=== PATIENT | female | born 1950 | race Caucasian/White ===

== ENCOUNTER → 2016-10-16 | Outpatient (CLI) | payer MEDICARE, OTHER ==
--- NOTE | 2016-10-16 16:52 | CR ---
EXAMINATION: Pelvis and right hip HISTORY: Pain COMPARISON: 08/17/2014 TECHNIQUE: AP pelvis and 2 views of the right hip FINDINGS: There is no acute osseous abnormality, dislocation, or fracture. Bone mineralization and j oint spaces appear grossly normal. Mild osteophyte formation is noted along the right femoral head. Minimal sclerotic changes are noted at the SI joints. Mild degenerative changes noted within the low er lumbar spine. IMPRESSION: Mild degenerative changes within the right hip without acute findings.
== END ==
LOC: MW.CHORTHO 07:36
PROVIDERS: ATTEND Physician Assistant
DX: M25.551 Pain in right hip (principal)
CPT/HCPCS: 20610; 73502; G0463; J1040

== ENCOUNTER → 2016-10-18 | Outpatient (CLI) | payer MEDICARE, OTHER | LOC: MW.CHFP 08:00 | DX: G57.02 Lesion of sciatic nerve, left lower limb (principal) | CPT/HCPCS: G0463 ==

== ENCOUNTER → 2016-11-07 | Outpatient (CLI) | payer MEDICARE, OTHER | LOC: MW.CHRC 08:00 | PROVIDERS: ATTEND Family Medicine | DX: J01.90 Acute sinusitis, unspecified (principal); B96.89 Other specified bacterial agents as the cause of diseases classified elsewhere; J45.909 Unspecified asthma, uncomplicated | CPT/HCPCS: G0463 ==

== ENCOUNTER → 2016-11-29 | Outpatient (CLI) | payer MEDICARE, OTHER ==
--- NOTE | 2016-11-30 10:55 | CR ---
EXAM DATE: 11/29/16 PATIENT'S AGE: 65 Patient: NICOLE MCLAIN Facility: [place], [place] Site . Site : [id number] Study: XRay Chest [id number]/13/2017 4:35:21 PM Ordering Physician: Krystal Torres Final Report: INDICATION: COUGH TECHNIQUE: Chest 2 views. COMPARISON: 06/16/15 FINDINGS: Cardiovascular and mediastinum: Heart size and vasculature are normal in caliber and appearance. Mediastinum is within normal limits. Lungs and pleural spaces: Lungs are clear. No sign of infiltrate or mass. No sign of pleural effusion. No pneumothorax. Bones and soft tissues: No significant findings. IMPRESSION: Unremarkable chest. Dictated by: Sam Rose MD @ 11/29/2016 17:24:58 (Electronic Signature) Report Signed by Proxy and Original Signed Document filed in the Medical Record. [facility]
== END ==
LOC: MW.CHRC 15:59
PROVIDERS: ATTEND Family Medicine
DX: R05 Cough (principal); J01.90 Acute sinusitis, unspecified
CPT/HCPCS: 36415; 71020; 71020-26; 85025; 87070; 87205; G0463

== ENCOUNTER → 2016-12-06 | Outpatient (CLI) | payer MEDICARE, OTHER | LOC: MW.CHORTHO 08:00 | PROVIDERS: ATTEND Orthopaedic Surgery | DX: M17.11 Unilateral primary osteoarthritis, right knee (principal); M25.561 Pain in right knee | CPT/HCPCS: 20610; G0463; J1040 ==

== ENCOUNTER 2017-05-01 11:22 | Day surgery (SDC) | payer MEDICARE, OTHER ==
[~2017-05-01 11:22] MED LIST: Lactated Ringers 1,000 ML IV SCH; Sodium Chloride 0.9% 10 ML Syringe FLUSH PRN; Sodium Chloride 0.9% 2.5 ML Syringe FLUSH PRN
[2017-05-01] MEDS ORDERED: Propofol 200 MG/20 ML SDV ONE (12:19)
--- NOTE | 2017-05-01 12:19 | PCM.PREANE ---
Preanesthetic Assessment - Anesthesia/Transfusion/Family Hx Anesthesia History: Prior Anesthesia Without Reaction Other Type of Anesthesia Reaction Comment: states "need a small tube" Family History of Anesthesia Reaction: No Transfusion History: No Prior Transfusion(s) - Review of Systems General: No Symptoms Pulmonary: No Symptoms Cardiovascular: No Symptoms Neurological: No Symptoms Other: Reports: None - Physical Assessment NPO Status Date: 04/30/17 O2 Sat by Pulse Oximetry: 92 Respiratory Rate: 16 Vital Signs: Last Vital Signs Temp 36.4 C 05/01/17 12:00 Pulse 73 05/01/17 12:00 Resp 16 05/01/17 12:00 BP 143/77 H 05/01/17 12:00 Pulse Ox 92 L 05/01/17 12:00 Height: 1.52 m Weight: 85.729 kg ASA Class: 2 Mental Status: Alert & Oriented x3 Airway Class: Mallampati = 2 Dentition: Reports: Bridge ROM/Head Extension: Full Lungs: Clear to Auscultation, Normal Respiratory Effort Cardiovascular: Regular Rate, Regular Rhythm - Allergies Allergies/Adverse Reactions: Allergies Allergy/AdvReac Type Severity Reaction Status Date / Time Sulfa (Sulfonamide Allergy Hives Verified 07/08/15 17:56 Antibiotics) Spinach Allergy Cannot Uncoded 04/29/17 16:12 Remember - Blood Product(s) Available: None - Acknowledgements Anesthesia Type Planned: MAC Pt an Appropriate Candidate for the Planned Anesthesia: Yes Alternatives and Risks of Anesthesia Discussed w Pt/Guardian: Yes Pt/Guardian Understands and Agrees with Anesthesia Plan: Yes PreAnesthesia Questionnaire HEENT History: Reports: Allergic Rhinitis, Other (See Below) Other HEENT History: wears glasses Cardiovascular History: Reports: High Cholesterol, Hypertension Respiratory History: Reports: SOB, Other (See Below) Other Respiratory History: SOB due to allergies Gastrointestinal History: Reports: Diverticulosis, GERD [employer]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: Musculoskeletal History: Reports: Osteoarthritis Neurological History: Reports: None Psychiatric History: Reports: Anxiety, Depression Endocrine/Metabolic History: Reports: Hypothyroidism, Obesity/BMI 30+ Other Endocrine/Metabolic History: Hypothyroidism Hematologic History: Reports: None - Past Surgical History Head Surgeries/Procedures: Reports: None HEENT Surgical History: Reports: Tonsillectomy GI Surgical History: Reports: Appendectomy, Cholecystectomy, Colonoscopy Other GI Surgeries/Procedures: Cautery of hemorrhoids Female Surgical History: Reports: Hysterectomy Musculoskeletal Surgical History: Reports: Arthroscopic Knee, Carpal Tunnel, Knee Replacement Other Musculoskeletal Surgeries/Procedures:: Right knee scope, Bilateral Decompression of Carpal Tunnel - SUBSTANCE USE Smoking Status *Q: Never Smoker Days Per Week of Alcohol Use: 0 Number of Drinks Per Day: 0 Total Drinks Per Week: 0 Recreational Drug Use History: No - HOME MEDS Home Medications: Home Meds Levothyroxine Sodium [Levoxyl] 50 mcg PO ACBRK 08/02/14 [History] amLODIPine [Norvasc] 2.5 mg PO BEDTIME 08/02/14 [History] Calcium Citrate/Vitamin D3 [Citracal + D Maximum Caplet] 1 tab CHEW DAILY [History] Cholecalciferol (Vitamin D3) [Vitamin D3] 2,000 units PO DAILY 07/08/15 [History ] Fluticasone Furoate [Veramyst] 1 spray JOANNE DAILY PRN 07/08/15 [History] Rosuvastatin [Crestor] 20 mg PO BEDTIME 07/08/15 [History] Hydrochlorothiazide 25 mg PO DAILY 07/11/15 [History] Nystatin/Triamcin [Nystatin-Triamcinolone Ointm] 1 applic TOP ASDIRECTED PRN [History] Potassium Chloride [Klor-Con M20] 20 meq PO DAILY 07/11/15 [History] Acyclovir [Zovirax 5% Crm] 1 applic TOP ASDIRECTED 04/29/17 [History] Aspirin [Halfprin] 81 mg PO DAILY 04/29/17 [History] Escitalopram Oxalate 20 mg PO DAILY 04/29/17 [History] Folic Acid 800 mg PO DAILY 04/29/17 [History] Lansoprazole [Prevacid] 30 mg PO DAILY 04/29/17 [History] Multivit-Min/FA/Lycopene/Lut [Centrum Silver Tablet] 1 tab PO DAILY 04/29/17 [ History] Triamcinolone Acetonide [Triamcinolone Acetonide 0.1% Crm] 1 applic TOP ASDIRECTED PRN 04/29/17 [History] - CURRENT (IN HOUSE) MEDS Current Meds: Current Medications Lactated Ringer's (Ringers, Lactated) 1,000 mls @ 125 mls/hr IV ASDIRECTED GRACIELA Sodium Chloride (Saline Flush) 10 ml FLUSH ASDIRECTED PRN PRN Reason: Keep Vein Open Sodium Chloride (Saline Flush) 2.5 ml FLUSH ASDIRECTED PRN PRN Reason: Keep Vein Open
[2017-05-01] MEDS ORDERED: Lidocaine 2% 5 ML SDV ONE (12:20)
[2017-05-01] MEDS ORDERED: fentaNYL 100 MCG/2 ML SDV ONE (12:20)
--- NOTE | 2017-05-01 13:13 | PCM.OPNOTE ---
- General Post-Op/Procedure Note Date of Surgery/Procedure: 05/01/17 Operative Procedure(s): Change in bowel habits, epigastric and lower abdominal pain Findings: Gastric body polyp, small hiatal hernia, diverticulosis of the sigmoid colon Pre Op Diagnosis: change in bowel habits, abdominal pain Post-Op Diagnosis: Gastric polyp, hiatal hernia (small), diverticulosis Anesthesia Technique: MAC Primary Surgeon: Chrissy Thorne Condition: Good
[2017-05-01 13:38] VITALS: BP 143/76
--- NOTE | 2017-05-01 14:19 | PCM.POSTAN ---
POST ANESTHESIA ASSESSMENT - MENTAL STATUS Mental Status: Alert, Oriented - RESPIRATORY Respiratory Status: Respiratory Rate WNL, Airway Patent, O2 Saturation Stable - CARDIOVASCULAR CV Status: Pulse Rate WNL, Blood Pressure Stable - GASTROINTESTINAL GI Status: No Symptoms - POST OP HYDRATION Hydration Status: Adequate & Stable
--- NOTE | 2017-05-01 14:20 | PCM48HPAN ---
Post Anesthesia Note - EVALUATION WITHIN 48HRS OF ANESTHETIC Vital Signs in Normal Range: Yes Patient Participated in Evaluation: Yes Respiratory Function Stable: Yes Airway Patent: Yes Cardiovascular Function Stable: Yes Hydration Status Stable: Yes Pain Control Satisfactory: Yes Nausea and Vomiting Control Satisfactory: Yes Mental Status Recovered: Yes
--- NOTE | 2017-05-01 15:03 | OR ---
SURGEON: CAMERON TADEO MD DATE OF PROCEDURE: 05/01/2017 PREOPERATIVE DIAGNOSIS: Abdominal pain, change in bowel habits. POSTOPERATIVE DIAGNOSES: 1. Gastroesophageal reflux disease. 2. Small hiatal hernia. 3. Gastric polyps. 4. Diverticulosis. PROCEDURE PERFORMED: Diagnostic esophagogastroduodenoscopy and colonoscopy. INSTRUMENT USED: Olympus endoscope, Olympus colonoscope. ANESTHESIA: MAC. EXTENT OF EXAM: To the second portion of the duodenum and to the cecum. PREPARATION: Good. LIMITATIONS: None. INDICATIONS FOR EXAMINATION: The patient is a 66-year-old female, who presents with a change in her bowel habits and epigastric as well as lower abdominal pain. A CT was performed that showed evidence of diverticulosis, but no other acute findings. A decision was made to perform a diagnostic EGD and colonoscopy. The patient and I discussed the procedure as well as expected perioperative course. We discussed the risks, including bleeding, infection, or damage to surrounding structures, including perforation. The patient verbalized understanding and wishes to proceed. PROCEDURE IN DETAIL: The patient was brought into the endoscopy suite and placed in a beach chair position. A time-out was completed verifying the patient's name, age, date of , allergies, and procedure to be performed. A bite block was placed into the patient's mouth and monitored anesthesia care was induced. Continuous oxygen was provided via nasal cannula throughout the procedure. After adequate sedation was achieved, a well lubricated endoscope was placed into the patient's mouth and advanced under direct visualization to the level of second portion of duodenum. This appeared normal and a photograph was taken. The scope was then brought back while examining the color, texture, anatomy, and integrity of the mucosa of the upper GI tract. The first portion of the duodenal bulb appeared normal. The scope was brought into the stomach and a photograph was taken of the pylorus as well as the esophageal hiatus. The esophageal hiatus appeared mildly invaginated suggesting a possible small hiatal hernia. Biopsies were then taken of the gastric mucosa along the antrum, body, and fundus. The patient had two small gastric polyps within the body of the stomach suggestive of hyperplastic gastric polyps. A biopsy was taken of one of these and sent to pathology. The scope was then brought into the distal esophagus and a photograph was taken of the GE junction. Again, there is some suggestion that the patient may have a small hiatal hernia at this level. The remainder of the esophagus appeared normal and this portion of the procedure terminated. The patient was then placed in the left lateral decubitus position. A digital rectal exam was performed. The patient was found to have some external hemorrhoidal skin tags, but the digital rectal exam was otherwise normal. A well lubricated colonoscope was then inserted into the rectum and advanced under direct visualization to the level of cecum. The cecum was identified by both visual and anatomic landmarks. A photograph was taken of the cecal cap. I attempted to retroflex the scope within the cecum, but was unable to do so. The scope was then straightened out and fully withdrawn while examining the color, texture, anatomy, integrity of the mucosa from the cecum to the anal canal. The patient was found to have a large amount of diverticula within the distal sigmoid colon. There were no polyps that were noted. Scope was then brought into the rectum and retroflexed to allow visualization of the anal canal opening. A photograph was taken and this appeared normal. The scope was straightened out and removed from the patient. The cecum to anus time was 13 minutes. The patient tolerated the procedure well and was taken to the PACU in stable condition. ENDOSCOPIC DIAGNOSES: 1. Gastroesophageal reflux disease. 2. Hiatal hernia. 3. Gastric polyps. 4. Diverticula of the sigmoid colon. RECOMMENDATION: Follow up in clinic in 2 weeks. ALEJA SOLIS /[id number]
== END 2017-05-01 13:45 | disposition home or self-care (01) ==
LOC: MW.SDS 11:22
PROVIDERS: ATTEND Surgery
DX: K31.7 Polyp of stomach and duodenum (principal); K21.9 Gastro-esophageal reflux disease without esophagitis; K57.30 Diverticulosis of large intestine without perforation or abscess without bleeding; K64.4 Residual hemorrhoidal skin tags; M17.0 Bilateral primary osteoarthritis of knee; F41.8 Other specified anxiety disorders; I10 Essential (primary) hypertension; E78.00 Pure hypercholesterolemia, unspecified; E87.6 Hypokalemia; E03.9 Hypothyroidism, unspecified; J45.909 Unspecified asthma, uncomplicated; B00.1 Herpesviral vesicular dermatitis; Z88.2 Allergy status to sulfonamides; Z91.018 Allergy to other foods; Z79.82 Long term (current) use of aspirin; Z79.899 Other long term (current) drug therapy; Z96.652 Presence of left artificial knee joint; Z90.49 Acquired absence of other specified parts of digestive tract; Z90.710 Acquired absence of both cervix and uterus; Z90.89 Acquired absence of other organs; Z98.890 Other specified postprocedural states; Z87.891 Personal history of nicotine dependence; Z68.36 Body mass index [BMI] 36.0-36.9, adult
CPT/HCPCS: 43239; 45378; J3010; J7120; 00740; 88305; 88312; J2704

== ENCOUNTER 2017-07-08 07:56 | Inpatient (IN) | payer MEDICARE, OTHER ==
--- NOTE | 2017-07-07 20:10 | PCM.OPNOTE ---
- General Post-Op/Procedure Note Date of Surgery/Procedure: 07/08/17 Operative Procedure(s): R TKA Post-Op Diagnosis: DJD R knee Anesthesia Technique: Spinal Primary Surgeon: Aleksandra Paez Retail Advertising Executive: Vanessa Malcolm Retail Advertising Executive: Cesar Simpson in mLs: 50 Condition: Good Free Text/Narrative:: tt=51 min #[id number]
[~2017-07-08 07:56] MED LIST changes: +Acetaminophen 1,000 MG in Premix Bag 1 BAG IV SCH; +Famotidine 20 MG/2 ML SDV IVPUSH SCH; +Ketorolac 15 MG/ML SDV IVPUSH SCH; -Lactated Ringers 1,000 ML IV SCH; +Scopolamine 1.5 MG Transdermal Patch TRDERM SCH; -Sodium Chloride 0.9% 10 ML Syringe FLUSH PRN; -Sodium Chloride 0.9% 2.5 ML Syringe FLUSH PRN; +oxyCODONE ER 10 MG TAB.ER PO SCH
[2017-07-08] MEDS ORDERED: ceFAZolin 2 GM in Premix Bag 1 BAG IV SCH (08:00)
[2017-07-08] MEDS ORDERED: Tranexamic Acid 4,000 MG in Sodium Chloride 0.9% 100 ML IV SCH (08:00)
[2017-07-08] MEDS ORDERED: Ropivacaine 49.25 ML, Ketorolac 30 MG, EPINEPHrine 0.5 MG, cloNIDine 80 MCG in Sodium C... INJECT SCH (08:06)
[2017-07-08] MEDS ORDERED: Midazolam 1 MG/ML 2 ML SDV ONE (09:01)
[2017-07-08] MEDS ORDERED: Ondansetron 4 MG/2 ML SDV ONE (09:01)
[2017-07-08] MEDS ORDERED: fentaNYL 100 MCG/2 ML SDV ONE (09:01)
[2017-07-08] MEDS ORDERED: Lidocaine 2% 5 ML SDV ONE (09:01)
[2017-07-08] MEDS ORDERED: Propofol 200 MG/20 ML SDV ONE ×2 (09:01→09:45)
[2017-07-08] MEDS: Lactated Ringers 1,000 ML IV SCH ×3 (09:05→23:25)
[2017-07-08] MEDS ORDERED: ePHEDrine 50 MG/ML SDV ONE (09:06)
--- NOTE | 2017-07-08 09:16 | PCM.PREANE ---
Preanesthetic Assessment - Anesthesia/Transfusion/Family Hx Anesthesia History: Prior Anesthesia Without Reaction Other Type of Anesthesia Reaction Comment: states "need a small tube" Family History of Anesthesia Reaction: No Transfusion History: No Prior Transfusion(s) - Review of Systems General: No Symptoms Pulmonary: No Symptoms Cardiovascular: No Symptoms Gastrointestinal: No Symptoms Neurological: No Symptoms Other: Reports: None - Physical Assessment NPO Status Date: 07/07/17 Height: 1.52 m Weight: 84.822 kg ASA Class: 2 Mental Status: Alert & Oriented x3 Airway Class: Mallampati = 2 Dentition: Reports: Normal Dentition ROM/Head Extension: Full Lungs: Clear to Auscultation, Normal Respiratory Effort Cardiovascular: Regular Rate, Regular Rhythm - Allergies Allergies/Adverse Reactions: Allergies Allergy/AdvReac Type Severity Reaction Status Date / Time Sulfa (Sulfonamide Allergy Hives Verified 07/08/15 17:56 Antibiotics) Spinach Allergy Cannot Uncoded 04/29/17 16:12 Remember - Blood Blood Available: No - Acknowledgements Anesthesia Type Planned: Spinal Pt an Appropriate Candidate for the Planned Anesthesia: Yes Alternatives and Risks of Anesthesia Discussed w Pt/Guardian: Yes Pt/Guardian Understands and Agrees with Anesthesia Plan: Yes Additional Comments: PMH: gerd,htn,hld,thyroid replacement PreAnesthesia Questionnaire HEENT History: Reports: Allergic Rhinitis, Other (See Below) Other HEENT History: wears glasses Cardiovascular History: Reports: High Cholesterol, Hypertension Respiratory History: Reports: Other (See Below) Other Respiratory History: hx reactive airway disease (allergy induced) Gastrointestinal History: Reports: GERD Genitourinary History: Reports: None [employer] DEVELOPER History: Reports: Musculoskeletal History: Reports: Osteoarthritis Neurological History: Reports: None Psychiatric History: Reports: Anxiety, Depression Endocrine/Metabolic History: Reports: Hypothyroidism, Obesity/BMI 30+ Other Endocrine/Metabolic History: Hypothyroidism Hematologic History: Reports: Other (See Below) Other Hematologic History: dry skin - Past Surgical History Head Surgeries/Procedures: Reports: None HEENT Surgical History: Reports: Tonsillectomy GI Surgical History: Reports: Appendectomy, Cholecystectomy, Colonoscopy Other GI Surgeries/Procedures: Cautery of hemorrhoids Female Surgical History: Reports: D&C, Hysterectomy Musculoskeletal Surgical History: Reports: Arthroscopic Knee, Knee Replacement Other Musculoskeletal Surgeries/Procedures:: Right knee scope, Bilateral Decompression of Carpal Tunnel, left knee replacement Dermatological Surgical History: Reports: Other (See Below) - SUBSTANCE USE Smoking Status *Q: Never Smoker Days Per Week of Alcohol Use: 0 Number of Drinks Per Day: 0 Total Drinks Per Week: 0 Recreational Drug Use History: No - HOME MEDS Home Medications: Home Meds Levothyroxine Sodium [Levoxyl] 50 mcg PO ACBRK 08/02/14 [History] amLODIPine [Norvasc] 2.5 mg PO BEDTIME 08/02/14 [History] Calcium Citrate/Vitamin D3 [Citracal + D Maximum Caplet] 1 tab CHEW DAILY [History] Cholecalciferol (Vitamin D3) [Vitamin D3] 2,000 units PO DAILY 07/08/15 [History ] Fluticasone Furoate [Veramyst] 1 spray JOANNE BEDTIME 07/08/15 [History] Rosuvastatin [Crestor] 20 mg PO BEDTIME 07/08/15 [History] Hydrochlorothiazide 25 mg PO DAILY 07/11/15 [History] Nystatin/Triamcin [Nystatin-Triamcinolone Ointm] 1 applic TOP ASDIRECTED PRN [History] Potassium Chloride [Klor-Con M20] 20 meq PO DAILY 07/11/15 [History] Aspirin [Halfprin] 81 mg PO DAILY 04/29/17 [History] Escitalopram Oxalate 20 mg PO DAILY 04/29/17 [History] Folic Acid 800 mg PO DAILY 04/29/17 [History] Lansoprazole [Prevacid] 30 mg PO DAILY 04/29/17 [History] Multivit-Min/FA/Lycopene/Lut [Centrum Silver Tablet] 1 tab PO DAILY 04/29/17 [ History] Albuterol Sulfate [Proair Hfa] 1 - 2 puff INH ASDIRECTED PRN 07/03/17 [History] - CURRENT (IN HOUSE) MEDS Current Meds: Current Medications Famotidine (Pepcid) 40 mg IVPUSH ONARRIVE GRACIELA Stop: 07/08/17 14:00 Last Admin: 07/08/17 09:05 Dose: 40 mg Acetaminophen 1,000 mg/ Premix 100 mls @ 400 mls/hr IV ONARRIVE GRACIELA Stop: 07/08/17 14:00 Last Admin: 07/08/17 09:03 Dose: 400 mls/hr Cefazolin Sodium/Dextrose 2 gm (/ Premix) 50 mls @ 100 mls/hr IV ONCALL GRACIELA Stop: 07/08/17 14:00 Ropivacaine 49.25 ml/Ketorolac Tromethamine 30 mg/Epinephrine HCl 0.5 mg/ Clonidine HCl 80 mcg/ Sodium Chloride 100 mls @ 50 mls/min INJECT ASDIRECTED GRACIELA Lactated Ringer's (Ringers, Lactated) 1,000 mls @ 100 mls/hr IV ASDIRECTED GRACIELA Last Admin: 07/08/17 09:05 Dose: 100 mls/hr Tranexamic Acid 4,000 mg/ (Sodium Chloride) 140 mls @ 600 mls/hr IV ASDIRECTED GRACIELA Stop: 07/08/17 14:00 Ketorolac Tromethamine (Toradol) 15 mg IVPUSH ONARRIVE GRACIELA Stop: 07/08/17 14:00 Last Admin: 07/08/17 09:05 Dose: 15 mg Oxycodone HCl (Oxycontin) 10 mg PO ONARRIVE GRACIELA Stop: 07/08/17 14:00 Last Admin: 07/08/17 09:04 Dose: 10 mg Scopolamine (Transderm-Scop) 1.5 mg TRDERM ONARRIVE [facility] Last Admin: 07/08/17 09:03 Dose: 1.5 mg Discontinued Medications Ephedrine Sulfate (Ephedrine Sulfate) Confirm Administered Dose 50 mg .ROUTE .STK-MED ONE Stop: 07/08/17 09:07 Fentanyl (Sublimaze) Confirm Administered Dose 200 mcg .ROUTE .STK-MED ONE Stop: 07/08/17 09:02 Lidocaine (Xylocaine-Mpf 2%) Confirm Administered Dose 10 ml .ROUTE .STK-MED ONE Stop: 07/08/17 09:02 Midazolam HCl (Versed 1 Mg/Ml) Confirm Administered Dose 2 mg .ROUTE .STK-MED ONE Stop: 07/08/17 09:02 Ondansetron HCl (Zofran) Confirm Administered Dose 4 mg .ROUTE .STK-MED ONE Stop: 07/08/17 09:02 Propofol (Diprivan 20 Ml) Confirm Administered Dose 400 mg .ROUTE .STK-MED ONE Stop: 07/08/17 09:02 Tranexamic Acid (Cyklokapron) Confirm Administered Dose 4,000 mg .ROUTE .STK- MED ONE Stop: 07/08/17 07:41
[2017-07-08] MEDS ORDERED: HYDROmorphone 2 MG/ML Syringe IVPUSH ONE (10:04)
[2017-07-08] MEDS ORDERED: fentaNYL 100 MCG/2 ML SDV IVPUSH PRN (10:04)
[2017-07-08] MEDS ORDERED: Ondansetron 4 MG/2 ML SDV IV PRN (10:47)
[2017-07-08] MEDS ORDERED: Bisacodyl 10 MG Supp RECTAL PRN (10:48)
[2017-07-08] MEDS ORDERED: Morphine 4 MG/ML Syringe IVPUSH PRN (10:48)
[2017-07-08] MEDS ORDERED: Aluminum Hydroxide/Magnesium Hydroxide/Simethicone Susp 30 ML Cup PO PRN (10:48)
[2017-07-08] MEDS ORDERED: Albuterol 8 GM Inhaler INH PRN (10:51)
--- NOTE | 2017-07-08 12:49 | OR ---
SURGEON: Aleksandra Paez MD DATE OF PROCEDURE: 07/08/2017 PREOPERATIVE DIAGNOSIS: Degenerative joint disease, right knee, tricompartmental. POSTOPERATIVE DIAGNOSIS: Degenerative joint disease, right knee, tricompartmental. PROCEDURE: Right total knee arthroplasty using patient specific instrumentation. CLOTH PATTERN MAKER: AIMEE Bhatti and Cesar Simpson PA-C. ANESTHESIA: Spinal with sedation. ESTIMATED BLOOD LOSS: 50 mL. TOURNIQUET TIME: 51 minutes. COMPLICATIONS: None. DVT PROPHYLAXIS: PAS boot and KARIME hose to the nonoperative leg. IMPLANTS USED: Mann Persona femoral component size 5 standard (LPS), tibial component size D, 11 mm all-polyethylene articular surface, and 29 mm all-polyethylene patella. 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 No significant synovitis was noted. BRIEF HISTORY: Patti is a 66-year-old female, who has had complaint of progressive right knee pain. She had failed conservative treatment. Due to her lack of response to conservative treatment, I did recommend surgical intervention. The risks and goals of the procedure were discussed with the patient were documented preoperatively. She agreed to proceed. DESCRIPTION OF PROCEDURE: The patient was properly identified and brought to the operating room. The patient was then transferred from the operating room cart and placed on the operating table in a supine position. Anesthesia was administered by the anesthesia staff. After adequate anesthesia was obtained, a well-padded tourniquet was applied to the surgical lower extremity. Mcdonald catheter was placed. The lower extremity was then prepped in standard fashion using ChloraPrep solution. It was then sterilely draped. A time-out was performed to ensure correct site and procedure. Preoperative antibiotics were given along with one gram of tranexamic acid IV. The surgical site had been marked preoperatively. An Esmarch was used to exsanguinate the right lower extremity and the tourniquet was inflated. An incision was made over the anterior aspect of the knee. The subcutaneous tissues were dissected down to the level of the fascia. A medial parapatellar approach to the knee was made. A portion of the infrapatellar fat pad was then excised. The distal femur was then exposed. The femoral patient-specific cutting guide was then placed. Pins were also placed. The distal femoral cutting block was placed and the distal femoral cut was made. Instrumentation was then removed. Both Whitesides' line and the epicondylar axis were then marked with electrocautery. The 4-in-1 cutting block was placed. This was placed in a slightly externally rotated position, which corresponded well with the previously drawn lines. The cutting guide was then pinned into position. An Matt wing guide was used to check the depth of resection of our anterior condylar cut and it was felt that no notching would occur. The anterior condylar cut was then made followed by the posterior condylar cut. Both the posterior chamfer and anterior chamfer cuts were then made. The cutting block was then removed along with the excess bony remnants. We then turned our attention to the tibia. The anterior cruciate ligament and posterior cruciate ligament were released and a posterior cruciate ligament retractor was placed to allow the tibia to be pulled anteriorly. The tibial patient-specific guide was then placed on the proximal tibia. This fit anatomically. The pins were then placed. The proximal tibia cutting guide was then placed and screwed into position. The proximal tibial resection was then made with care being taken to protect the patellar tendon. The bony resection was then removed. The remainder of the medial and lateral meniscus were then excised. Care was taken to protect the popliteus tendon. The tibia was then sized to the appropriate size. The distal femur was then elevated. The posterior capsule was stripped off the distal femur both medially and laterally. The posterior capsule along with the medial and lateral gutters were then injected with a standard mixture consisting of clonidine, epinephrine, Toradol, and Ropivacaine, unless any allergies were found preoperatively. The femoral component was then placed onto the distal femur in a slightly lateral position. This fit the femur well. A box cut was then made without difficulty. This was then removed. The tibial trial along with the polyethylene liner was then placed. The knee came easily into full extension and was stable to varus and valgus stressing both in full extension and flexion. Any additional releases were performed at this time. We then returned our attention to the patella. The patella was everted and towel clamps were used to hold the patella in position. It was resected to a 15 millimeter thickness. It was then sized to the appropriate size. It was prepared in the usual fashion after placing the predetermined size clamps. This was placed in a slightly superior and medial position. The clamp was then removed. The patellar trial button was placed. The knee was taken through a range of motion using the no-touch technique. The patella tracked centrally. A drop geo was then placed to check alignment. All instruments were then removed from the knee. The tibial sizer was then placed on the tibia. The tibia was prepared in the usual fashion using the reamer and broach. This was then removed. All bony surfaces were copiously irrigated with Pulsavac solution. They were then suctioned dry. Cement was prepared on the back table in the usual manner. Once it was prepared, the bone ends were again suctioned dry. The tibia was cemented into place first. This was malleted into position. Excess cement was then cleared. The femur was then placed in a similar manner. We placed the polyethylene trial into place and the knee was brought into full extension. An axial load was placed while keeping the knee in full extension. The patella button was also cemented into position and the clamp was used to hold this in place as the cement was allowed to cure. The wound was again copiously irrigated with saline solution using a Pulsavac livestock trader. Following this 1 g of tranexamic acid was applied to the wound topically. After we had adequate curing of the cement, the knee was again taken through a range of motion. The size of the polyethylene was then determined. The polyethylene trial was then removed. The tibial tray was suctioned to make sure there was no remaining soft tissue or cement. Excess cement was cleared from around the edges of the prosthesis as well. The tourniquet was then deflated. We were able to observe for any excess bleeding and none was noted. Electrocautery was used to maintain hemostasis. An additional gram of tranexamic acid was given IV. The retractors were again placed and the predetermined polyethylene was then placed. This was locked into position without difficulty. The knee was again taken through a range of motion with no change from the prior exam. The fascial layer was closed with Number One Vicryl. The subcutaneous tissues were closed with 2-0 Vicryl. The skin was closed with malina. Xeroform gauze was placed over the wound and a bulky dressing was applied. The patient was then awakened from anesthesia and transferred back to the operating room cart. They were brought to the recovery room in stable condition. All needle and sponge counts were correct. JL / WILL /[id number]
[2017-07-08] MEDS: Acetaminophen 1,000 MG in Premix Bag 1 BAG IV SCH ×2 (14:18→20:54)
--- NOTE | 2017-07-08 15:21 | CR ---
EXAMINATION: Right knee HISTORY: Arthroplasty COMPARISON: 02/02/2016 TECHNIQUE: 2 views FINDINGS/IMPRESSION: Right total knee hardware is demonstrated in good position and alignment. Postop erative soft tissue changes are noted.
[2017-07-08] MEDS: Ketorolac 15 MG/ML SDV IVPUSH SCH ×2 (15:52→22:09)
[2017-07-08] MEDS: ceFAZolin 2 GM in Premix Bag 1 BAG IV SCH (17:08)
[2017-07-08] MEDS: Docusate Sodium 100 MG Cap PO SCH (20:54)
[2017-07-08] MEDS: Rosuvastatin 10 MG Tab PO SCH (20:54)
[2017-07-08] MEDS: amLODIPine 2.5 MG Tab PO SCH (20:55)
[2017-07-08] MEDS: oxyCODONE ER 10 MG TAB.ER PO SCH (20:55)
[2017-07-08] MEDS: FLUTICASONE FUROATE NAS SCH (22:10)
[2017-07-09] MEDS: ceFAZolin 2 GM in Premix Bag 1 BAG IV SCH (01:31)
[2017-07-09] MEDS: Acetaminophen 500 MG Tab PO SCH ×4 (02:26→22:02)
[2017-07-09] MEDS: Ketorolac 15 MG/ML SDV IVPUSH SCH (04:46)
[2017-07-09] MEDS: Levothyroxine 50 MCG Tab PO SCH (06:30)
[2017-07-09] MEDS: Potassium Chloride 20 MEQ Tab.ER PO SCH (08:15)
[2017-07-09] MEDS: Lansoprazole 30 MG Orally Disintegrating Tab.CR PO SCH (08:16)
[2017-07-09] MEDS: Aspirin 325 MG Tab PO SCH ×2 (08:16→22:01)
[2017-07-09] MEDS: Escitalopram 10 MG Tab PO SCH (08:16)
[2017-07-09] MEDS: Multivitamins with Iron/Calcium/Folic Acid/Minerals Tab PO SCH (08:17)
[2017-07-09] MEDS: Docusate Sodium 100 MG Cap PO SCH ×2 (08:17→22:01)
[2017-07-09] MEDS: oxyCODONE ER 10 MG TAB.ER PO SCH ×2 (08:17→22:01)
[2017-07-09] MEDS: Hydrochlorothiazide 25 MG Tab PO SCH (08:18)
[2017-07-09] MEDS: Lactated Ringers 1,000 ML IV SCH (08:26)
[2017-07-09] MEDS ORDERED: Sodium Chloride 0.9% 10 ML Syringe FLUSH PRN (09:02)
[2017-07-09] MEDS ORDERED: Sodium Chloride 0.9% 2.5 ML Syringe FLUSH PRN (09:02)
--- NOTE | 2017-07-09 09:06 | PCM.SURGPN ---
<Vanessa Malcolm R - Last Filed: 07/09/17 09:03> - General Info Date of Service: 07/09/17 Date of Surgery/Procedure: 07/08/17 POD#: 1 Functional Status: Reports: Pain Controlled, Tolerating Diet, Ambulating - Review of Systems General: Reports: No Symptoms Pulmonary: Reports: No Symptoms Cardiovascular: Reports: No Symptoms Gastrointestinal: Reports: No Symptoms Musculoskeletal: Reports: Leg Pain Systems Review Comment:: pt just back to bed after up for breakfast tolerating PO intake well no nausea pain controlled with PO pain medications no specific concerns today - Patient Data Vitals - Most Recent: Last Vital Signs Temp 97.8 F 07/09/17 08:37 Pulse 85 07/09/17 08:37 Resp 17 07/09/17 08:37 BP 116/56 L 07/09/17 08:37 Pulse Ox 90 L 07/09/17 08:37 Weight - Most Recent: 84.822 kg I&O - Last 24 Hours: Intake & Output 07/08/17 07/09/17 07/09/17 22:59 06:59 14:59 Intake Total 587 1777 384 Output Total 225 700 Balance 362 1077 384 Lab Results Last 24 Hrs: Laboratory Results - last 24 hr 07/08/17 07/09/17 Range/Units 09:00 06:16 Hgb 13.4 (12.0-16.0) g/dL Hct 40.7 (36.0-46.0) % Blood Type O POSITIVE Antibody Screen NEGATIVE Med Orders - Current: Current Medications Acetaminophen (Tylenol Extra Strength) 1,000 mg PO Q6H [facility] Last Admin: 07/09/17 08:15 Dose: 1,000 mg Al Hydroxide/Mg Hydroxide (Mag-Al Plus) 30 ml PO Q4H PRN PRN Reason: indigestion Albuterol (Ventolin Hfa) 0 gm INH ASDIRECTED PRN PRN Reason: Wheezing Amlodipine Besylate (Norvasc) 2.5 mg PO BEDTIME [facility] Last Admin: 07/08/17 20:55 Dose: 2.5 mg Aspirin (Aspirin) 325 mg PO BID [facility] Last Admin: 07/09/17 08:16 Dose: 325 mg Bisacodyl (Dulcolax) 10 mg RECTAL DAILY PRN PRN Reason: Constipation Diphenhydramine HCl (Benadryl) 25 - 50 mg PO Q6H PRN PRN Reason: Itching Docusate Sodium (Colace) 100 mg PO BID [facility] Last Admin: 07/09/17 08:17 Dose: 100 mg Escitalopram Oxalate (Lexapro) 20 mg PO DAILY [facility] Last Admin: 07/09/17 08:16 Dose: 20 mg Fentanyl (Sublimaze) 50 mcg IVPUSH Q5M PRN PRN Reason: Pain (severe 7-10) Stop: 07/09/17 10:04 Hydrochlorothiazide (Hydrochlorothiazide) 25 mg PO DAILY [facility] Last Admin: 07/09/17 08:18 Dose: 25 mg Ropivacaine 49.25 ml/Ketorolac Tromethamine 30 mg/Epinephrine HCl 0.5 mg/ Clonidine HCl 80 mcg/ Sodium Chloride 100 mls @ 50 mls/min INJECT ASDIRECTED [facility] Lactated Ringer's (Ringers, Lactated) 1,000 mls @ 100 mls/hr IV ASDIRECTED [facility] Last Admin: 07/09/17 08:26 Dose: 100 mls/hr Lansoprazole (Prevacid Solutab) 30 mg PO DAILY [facility] Last Admin: 07/09/17 08:16 Dose: 30 mg Levothyroxine Sodium (Synthroid) 50 mcg PO ACBRK [facility] Last Admin: 07/09/17 06:30 Dose: 50 mcg Morphine Sulfate (Morphine) 1 - 3 mg IVPUSH Q3H PRN PRN Reason: Pain Multivitamins/Minerals (Thera M Plus) 1 tab PO DAILY [facility] Last Admin: 07/09/17 08:17 Dose: 1 tab Nystatin/Triamcinolone Acetonide (Mycolog Crm) 0 gm TOP ASDIRECTED PRN PRN Reason: dry skin Ondansetron HCl (Zofran) 4 mg IV Q6HR PRN PRN Reason: NAUSEA/VOMITING Oxycodone HCl (Oxycodone) 5 - 10 mg PO Q4H PRN PRN Reason: Pain Oxycodone HCl (Oxycontin) 10 mg PO Q12HR [facility] Last Admin: 07/09/17 08:17 Dose: 10 mg Fluticasone Furoate ([Veramyst] 1 [place]) 0 each JOANNE BEDTIME [facility] Last Admin: 07/08/17 22:10 Dose: Not Given Potassium Chloride (Klor-Con M20) 20 meq PO DAILY [facility] Last Admin: 07/09/17 08:15 Dose: 20 meq Rosuvastatin Calcium (Crestor) 20 mg PO BEDTIME [facility] Last Admin: 07/08/17 20:54 Dose: 20 mg Scopolamine (Transderm-Scop) 1.5 mg TRDERM ONARRIVE [facility] Last Admin: 07/08/17 09:03 Dose: 1.5 mg Sodium Chloride (Saline Flush) 10 ml FLUSH ASDIRECTED PRN PRN Reason: Keep Vein Open Sodium Chloride (Saline Flush) 2.5 ml FLUSH ASDIRECTED PRN PRN Reason: Keep Vein Open Discontinued Medications Ephedrine Sulfate (Ephedrine Sulfate) Confirm Administered Dose 50 mg .ROUTE .STK-MED ONE Stop: 07/08/17 09:07 Famotidine (Pepcid) 40 mg IVPUSH ONARRIVE [facility] Stop: 07/08/17 14:00 Last Admin: 07/08/17 09:05 Dose: 40 mg Fentanyl (Sublimaze) Confirm Administered Dose 200 mcg .ROUTE .STK-MED ONE Stop: 07/08/17 09:02 Hydromorphone HCl (Dilaudid) 0 mg IVPUSH ONETIME ONE Stop: 07/08/17 10:05 Last Admin: 07/08/17 21:26 Dose: Not Given Acetaminophen 1,000 mg/ Premix 100 mls @ 400 mls/hr IV ONARRIVE [facility] Stop: 07/08/17 14:00 Last Admin: 07/08/17 09:03 Dose: 400 mls/hr Cefazolin Sodium/Dextrose 2 gm (/ Premix) 50 mls @ 100 mls/hr IV ONCALL [facility] Stop: 07/08/17 14:00 Tranexamic Acid 4,000 mg/ (Sodium Chloride) 140 mls @ 600 mls/hr IV ASDIRECTED [facility] Stop: 07/08/17 14:00 Acetaminophen 1,000 mg/ Premix 100 mls @ 400 mls/hr IV Q6H [facility] Stop: 07/08/17 21:14 Last Admin: 07/08/17 20:54 Dose: 400 mls/hr Cefazolin Sodium/Dextrose 2 gm (/ Premix) 50 mls @ 100 mls/hr IV Q8H [facility] Stop: 07/09/17 02:29 Last Admin: 07/09/17 01:31 Dose: 100 mls/hr Ketorolac Tromethamine (Toradol) 15 mg IVPUSH ONARRIVE [facility] Stop: 07/08/17 14:00 Last Admin: 07/08/17 09:05 Dose: 15 mg Ketorolac Tromethamine (Toradol) 15 mg IVPUSH Q6H [facility] Stop: 07/09/17 09:00 Last Admin: 07/09/17 04:46 Dose: 15 mg Lidocaine (Xylocaine-Mpf 2%) Confirm Administered Dose 10 ml .ROUTE .STK-MED ONE Stop: 07/08/17 09:02 Midazolam HCl (Versed 1 Mg/Ml) Confirm Administered Dose 2 mg .ROUTE .STK-MED ONE Stop: 07/08/17 09:02 Ondansetron HCl (Zofran) Confirm Administered Dose 4 mg .ROUTE .STK-MED ONE Stop: 07/08/17 09:02 Oxycodone HCl (Oxycontin) 10 mg PO ONARRIVE [facility] Stop: 07/08/17 14:00 Last Admin: 07/08/17 09:04 Dose: 10 mg Propofol (Diprivan 20 Ml) Confirm Administered Dose 400 mg .ROUTE .STK-MED ONE Stop: 07/08/17 09:02 Propofol (Diprivan 20 Ml) Confirm Administered Dose 200 mg .ROUTE .STK-MED ONE Stop: 07/08/17 09:46 Tranexamic Acid (Cyklokapron) Confirm Administered Dose 4,000 mg .ROUTE .STK- MED ONE Stop: 07/08/17 07:41 - Exam Wound/Incisions: Dressing Dry and Intact. No: Drainage, Erythema General: Alert, Oriented Cardiovascular: Regular Rate, Regular Rhythm Extremities: Other (RLE - at/ehl/gastroc 5/5, dp 2+, sensation intact distally) Physical Findings Comment:: vss, afeb hgb 13.4 UO 1300+mL - Problem List Review Problem List Initiated/Reviewed/Updated: Yes - My Orders Last 24 Hours: Active Orders 24 hr Category Date Time Status Dressing Change [Wound Care] [RC] Q12H Care 07/08/17 10:47 Active Intake and Output [RC] Q12H Care 07/08/17 10:47 Active Neurovascular Check [RC] Q2HR Care 07/08/17 10:47 Active Notify Provider Vital Signs [RC] ASDIRECTED Care 07/08/17 10:47 Active RT Incentive Spirometry [RC] ASDIRECTED Care 07/08/17 10:47 Active Urinary Catheter Removal [RC] Per Unit Routine Care 07/09/17 09:02 Ordered Vital Signs [RC] Q4H Care 07/08/17 10:47 Active PT Evaluation and Treatment [CONS] Routine Cons 07/08/17 10:47 Active HEMOGLOBIN/HEMATOCRIT,HH [HEME] DAILY Lab 07/10/17 06:00 Ordered HEMOGLOBIN/HEMATOCRIT,HH [HEME] DAILY Lab 07/11/17 06:00 Ordered Acetaminophen [Tylenol Extra Strength] Med 07/09/17 03:00 Active 1,000 mg PO Q6H Albuterol [Ventolin HFA] Med 07/08/17 10:51 Active 0 gm INH ASDIRECTED PRN Alum Hydrox/Mag Hydrox/Simeth [Mag-Al Plus] Med 07/08/17 10:48 Active 30 ml PO Q4H PRN Aspirin Med 07/09/17 09:00 Active 325 mg PO BID Bisacodyl [Dulcolax] Med 07/08/17 10:48 Active 10 mg RECTAL DAILY PRN Docusate Sodium [Colace] Med 07/08/17 21:00 Active 100 mg PO BID Escitalopram [Lexapro] Med 07/09/17 09:00 Active 20 mg PO DAILY Hydrochlorothiazide Med 07/09/17 09:00 Active 25 mg PO DAILY Lansoprazole [Prevacid Solutab] Med 07/09/17 09:00 Active 30 mg PO DAILY Levothyroxine [Synthroid] Med 07/09/17 07:30 Active 50 mcg PO ACBRK Morphine Med 07/08/17 10:48 Active 1 - 3 mg IVPUSH Q3H PRN Multivitamins w-Iron/Ca/FA/Min [Thera M Plus] Med 07/09/17 09:00 Active 1 tab PO DAILY Nystatin/Triamcinolone Crm [Mycolog Crm] Med 07/08/17 10:51 Active 0 gm TOP ASDIRECTED PRN Ondansetron [Zofran] Med 07/08/17 10:47 Active 4 mg IV Q6HR PRN Patient's Own Medication [Ptom] Med 07/08/17 21:00 Active 0 each JOANNE BEDTIME Potassium Chloride [Klor-Con M20] Med 07/09/17 09:00 Active 20 meq PO DAILY Ropivacaine [Naropin 0.2%] 49.25 ml Med 07/08/17 08:06 Active Ketorolac [Toradol] 30 mg EPINEPHrine [Adrenalin 1:1000] 0.5 mg cloNIDine [Duraclon] 80 mcg Sodium Chloride 0.9% [Normal Saline] 48.45 ml INJECT ASDIRECTED Rosuvastatin [Crestor] Med 07/08/17 21:00 Active 20 mg PO BEDTIME Sodium Chloride 0.9% [Saline Flush] Med 07/09/17 09:02 Ordered 10 ml FLUSH ASDIRECTED PRN Sodium Chloride 0.9% [Saline Flush] Med 07/09/17 09:02 Ordered 2.5 ml FLUSH ASDIRECTED PRN amLODIPine [Norvasc] Med 07/08/17 21:00 Active 2.5 mg PO BEDTIME diphenhydrAMINE [Benadryl] Med 07/08/17 10:48 Active 25 - 50 mg PO Q6H PRN fentaNYL [Sublimaze] Med 07/08/17 10:04 Active 50 mcg IVPUSH Q5M PRN oxyCODONE Med 07/08/17 10:48 Active 5 - 10 mg PO Q4H PRN oxyCODONE ER [OxyCONTIN] Med 07/08/17 21:00 Active 10 mg PO Q12HR Convert IV to Saline Lock [OM.PC] Routine Oth 07/09/17 09:02 Ordered Ice Therapy [OM.PC] Routine Oth 07/08/17 10:47 Ordered Medication Orders Acetaminophen (Tylenol Extra Strength) 1,000 mg PO Q6H [facility] Last Admin: 07/09/17 08:15 Dose: 1,000 mg Admin: 07/09/17 02:26 Dose: 1,000 mg Al Hydroxide/Mg Hydroxide (Mag-Al Plus) 30 ml PO Q4H PRN PRN Reason: indigestion Albuterol (Ventolin Hfa) 0 gm INH ASDIRECTED PRN PRN Reason: Wheezing Amlodipine Besylate (Norvasc) 2.5 mg PO BEDTIME [facility] Last Admin: 07/08/17 20:55 Dose: 2.5 mg Aspirin (Aspirin) 325 mg PO BID [facility] Last Admin: 07/09/17 08:16 Dose: 325 mg Bisacodyl (Dulcolax) 10 mg RECTAL DAILY PRN PRN Reason: Constipation Diphenhydramine HCl (Benadryl) 25 - 50 mg PO Q6H PRN PRN Reason: Itching Docusate Sodium (Colace) 100 mg PO BID [facility] Last Admin: 07/09/17 08:17 Dose: 100 mg Admin: 07/08/17 20:54 Dose: 100 mg Escitalopram Oxalate (Lexapro) 20 mg PO DAILY [facility] Last Admin: 07/09/17 08:16 Dose: 20 mg Fentanyl (Sublimaze) 50 mcg IVPUSH Q5M PRN PRN Reason: Pain (severe 7-10) Stop: 07/09/17 10:04 Hydrochlorothiazide (Hydrochlorothiazide) 25 mg PO DAILY [facility] Last Admin: 07/09/17 08:18 Dose: 25 mg Ropivacaine 49.25 ml/Ketorolac Tromethamine 30 mg/Epinephrine HCl 0.5 mg/ Clonidine HCl 80 mcg/ Sodium Chloride 100 mls @ 50 mls/min INJECT ASDIRECTED [facility] Lactated Ringer's (Ringers, Lactated) 1,000 mls @ 100 mls/hr IV ASDIRECTED [facility] Last Admin: 07/09/17 08:26 Dose: 100 mls/hr Infusion: 07/09/17 08:26 Dose: 100 mls/hr Admin: 07/08/17 23:25 Dose: 100 mls/hr Infusion: 07/08/17 22:17 Dose: 100 mls/hr Admin: 07/08/17 12:17 Dose: 100 mls/hr Infusion: 07/08/17 12:17 Dose: 100 mls/hr Admin: 07/08/17 09:05 Dose: 100 mls/hr Lansoprazole (Prevacid Solutab) 30 mg PO DAILY [facility] Last Admin: 07/09/17 08:16 Dose: 30 mg Levothyroxine Sodium (Synthroid) 50 mcg PO ACBRK [facility] Last Admin: 07/09/17 06:30 Dose: 50 mcg Morphine Sulfate (Morphine) 1 - 3 mg IVPUSH Q3H PRN PRN Reason: Pain Multivitamins/Minerals (Thera M Plus) 1 tab PO DAILY [facility] Last Admin: 07/09/17 08:17 Dose: 1 tab Nystatin/Triamcinolone Acetonide (Mycolog Crm) 0 gm TOP ASDIRECTED PRN PRN Reason: dry skin Ondansetron HCl (Zofran) 4 mg IV Q6HR PRN PRN Reason: NAUSEA/VOMITING Oxycodone HCl (Oxycodone) 5 - 10 mg PO Q4H PRN PRN Reason: Pain Oxycodone HCl (Oxycontin) 10 mg PO Q12HR [facility] Last Admin: 07/09/17 08:17 Dose: 10 mg Admin: 07/08/17 20:55 Dose: 10 mg Fluticasone Furoate ([Veramyst] 1 [place]) 0 each JOANNE BEDTIME [facility] Last Admin: 07/08/17 22:10 Dose: Potassium Chloride (Klor-Con M20) 20 meq PO DAILY [facility] Last Admin: 07/09/17 08:15 Dose: 20 meq Rosuvastatin Calcium (Crestor) 20 mg PO BEDTIME [facility] Last Admin: 07/08/17 20:54 Dose: 20 mg Scopolamine (Transderm-Scop) 1.5 mg TRDERM ONARRIVE [facility] Last Admin: 07/08/17 09:03 Dose: 1.5 mg Sodium Chloride (Saline Flush) 10 ml FLUSH ASDIRECTED PRN PRN Reason: Keep Vein Open Sodium Chloride (Saline Flush) 2.5 ml FLUSH ASDIRECTED PRN PRN Reason: Keep Vein Open - Assessment Assessment (Free Text/Narrative):: POD#1 R TKA - Plan Plan (Free Text/Narrative):: DC IV fluids DC bhandari PT today ASA 325mg PO BID for DVT prophylaxis will see how pt progresses with PT, likely d/ch to home tomorrow <Aleksandra Paez R - Last Filed: 07/09/17 19:14> - Patient Data Vitals - Most Recent: Last Vital Signs Temp 98.9 F 07/09/17 16:34 Pulse 86 07/09/17 16:34 Resp 17 07/09/17 16:34 BP 118/54 L 07/09/17 16:34 Pulse Ox 90 L 07/09/17 16:34 I&O - Last 24 Hours: Intake & Output 07/09/17 07/09/17 07/09/17 06:59 14:59 22:59 Intake Total 3672 338 5858 Output Total 700 950 Balance 1077 384 90 Lab Results Last 24 Hrs: Laboratory Results - last 24 hr 07/09/17 Range/Units 06:16 Hgb 13.4 (12.0-16.0) g/dL Hct 40.7 (36.0-46.0) % Med Orders - Current: Current Medications Acetaminophen (Tylenol Extra Strength) 1,000 mg PO Q6H [facility] Last Admin: 07/09/17 14:34 Dose: 1,000 mg Al Hydroxide/Mg Hydroxide (Mag-Al Plus) 30 ml PO Q4H PRN PRN Reason: indigestion Albuterol (Ventolin Hfa) 0 gm INH ASDIRECTED PRN PRN Reason: Wheezing Amlodipine Besylate (Norvasc) 2.5 mg PO BEDTIME [facility] Last Admin: 07/08/17 20:55 Dose: 2.5 mg Aspirin (Aspirin) 325 mg PO BID [facility] Last Admin: 07/09/17 08:16 Dose: 325 mg Bisacodyl (Dulcolax) 10 mg RECTAL DAILY PRN PRN Reason: Constipation Diphenhydramine HCl (Benadryl) 25 - 50 mg PO Q6H PRN PRN Reason: Itching Docusate Sodium (Colace) 100 mg PO BID [facility] Last Admin: 07/09/17 08:17 Dose: 100 mg Escitalopram Oxalate (Lexapro) 20 mg PO DAILY [facility] Last Admin: 07/09/17 08:16 Dose: 20 mg Hydrochlorothiazide (Hydrochlorothiazide) 25 mg PO DAILY [facility] Last Admin: 07/09/17 08:18 Dose: 25 mg Ropivacaine 49.25 ml/Ketorolac Tromethamine 30 mg/Epinephrine HCl 0.5 mg/ Clonidine HCl 80 mcg/ Sodium Chloride 100 mls @ 50 mls/min INJECT ASDIRECTED [facility] Lactated Ringer's (Ringers, Lactated) 1,000 mls @ 100 mls/hr IV ASDIRECTED [facility] Last Admin: 07/09/17 08:26 Dose: 100 mls/hr Lansoprazole (Prevacid Solutab) 30 mg PO DAILY [facility] Last Admin: 07/09/17 08:16 Dose: 30 mg Levothyroxine Sodium (Synthroid) 50 mcg PO ACBRK [facility] Last Admin: 07/09/17 06:30 Dose: 50 mcg Morphine Sulfate (Morphine) 1 - 3 mg IVPUSH Q3H PRN PRN Reason: Pain Last Admin: 07/09/17 12:57 Dose: 3 mg Multivitamins/Minerals (Thera M Plus) 1 tab PO DAILY [facility] Last Admin: 07/09/17 08:17 Dose: 1 tab Nystatin/Triamcinolone Acetonide (Mycolog Crm) 0 gm TOP ASDIRECTED PRN PRN Reason: dry skin Ondansetron HCl (Zofran) 4 mg IV Q6HR PRN PRN Reason: NAUSEA/VOMITING Oxycodone HCl (Oxycodone) 5 - 10 mg PO Q4H PRN PRN Reason: Pain Last Admin: 07/09/17 17:35 Dose: 10 mg Oxycodone HCl (Oxycontin) 10 mg PO Q12HR [facility] Last Admin: 07/09/17 08:17 Dose: 10 mg Fluticasone Furoate ([Veramyst] 1 [place]) 0 each JOANNE BEDTIME [facility] Last Admin: 07/08/17 22:10 Dose: Not Given Potassium Chloride (Klor-Con M20) 20 meq PO DAILY [facility] Last Admin: 07/09/17 08:15 Dose: 20 meq Rosuvastatin Calcium (Crestor) 20 mg PO BEDTIME [facility] Last Admin: 07/08/17 20:54 Dose: 20 mg Scopolamine (Transderm-Scop) 1.5 mg TRDERM ONARRIVE [facility] Last Admin: 07/08/17 09:03 Dose: 1.5 mg Sodium Chloride (Saline Flush) 10 ml FLUSH ASDIRECTED PRN PRN Reason: Keep Vein Open Sodium Chloride (Saline Flush) 2.5 ml FLUSH ASDIRECTED PRN PRN Reason: Keep Vein Open Discontinued Medications Ephedrine Sulfate (Ephedrine Sulfate) Confirm Administered Dose 50 mg .ROUTE .STK-MED ONE Stop: 07/08/17 09:07 Famotidine (Pepcid) 40 mg IVPUSH ONARRIVE [facility] Stop: 07/08/17 14:00 Last Admin: 07/08/17 09:05 Dose: 40 mg Fentanyl (Sublimaze) Confirm Administered Dose 200 mcg .ROUTE .STK-MED ONE Stop: 07/08/17 09:02 Fentanyl (Sublimaze) 50 mcg IVPUSH Q5M PRN PRN Reason: Pain (severe 7-10) Stop: 07/09/17 10:04 Hydromorphone HCl (Dilaudid) 0 mg IVPUSH ONETIME ONE Stop: 07/08/17 10:05 Last Admin: 07/08/17 21:26 Dose: Not Given Acetaminophen 1,000 mg/ Premix 100 mls @ 400 mls/hr IV ONARRIVE [facility] Stop: 07/08/17 14:00 Last Admin: 07/08/17 09:03 Dose: 400 mls/hr Cefazolin Sodium/Dextrose 2 gm (/ Premix) 50 mls @ 100 mls/hr IV ONCALL [facility] Stop: 07/08/17 14:00 Tranexamic Acid 4,000 mg/ (Sodium Chloride) 140 mls @ 600 mls/hr IV ASDIRECTED [facility] Stop: 07/08/17 14:00 Acetaminophen 1,000 mg/ Premix 100 mls @ 400 mls/hr IV Q6H [facility] Stop: 07/08/17 21:14 Last Admin: 07/08/17 20:54 Dose: 400 mls/hr Cefazolin Sodium/Dextrose 2 gm (/ Premix) 50 mls @ 100 mls/hr IV Q8H [facility] Stop: 07/09/17 02:29 Last Admin: 07/09/17 01:31 Dose: 100 mls/hr Ketorolac Tromethamine (Toradol) 15 mg IVPUSH ONARRIVE [facility] Stop: 07/08/17 14:00 Last Admin: 07/08/17 09:05 Dose: 15 mg Ketorolac Tromethamine (Toradol) 15 mg IVPUSH Q6H [facility] Stop: 07/09/17 09:00 Last Admin: 07/09/17 04:46 Dose: 15 mg Lidocaine (Xylocaine-Mpf 2%) Confirm Administered Dose 10 ml .ROUTE .STK-MED ONE Stop: 07/08/17 09:02 Midazolam HCl (Versed 1 Mg/Ml) Confirm Administered Dose 2 mg .ROUTE .STK-MED ONE Stop: 07/08/17 09:02 Ondansetron HCl (Zofran) Confirm Administered Dose 4 mg .ROUTE .STK-MED ONE Stop: 07/08/17 09:02 Oxycodone HCl (Oxycontin) 10 mg PO ONARRIVE [facility] Stop: 07/08/17 14:00 Last Admin: 07/08/17 09:04 Dose: 10 mg Propofol (Diprivan 20 Ml) Confirm Administered Dose 400 mg .ROUTE .STK-MED ONE Stop: 07/08/17 09:02 Propofol (Diprivan 20 Ml) Confirm Administered Dose 200 mg .ROUTE .STK-MED ONE Stop: 07/08/17 09:46 Tranexamic Acid (Cyklokapron) Confirm Administered Dose 4,000 mg .ROUTE .STK- MED ONE Stop: 07/08/17 07:41 - Problem List Review Problem List Initiated/Reviewed/Updated: Yes - My Orders Last 24 Hours: Active Orders 24 hr Category Date Time Status Urinary Catheter Removal [RC] Per Unit Routine Care 07/09/17 09:02 Active HEMOGLOBIN/HEMATOCRIT,HH [HEME] DAILY Lab 07/10/17 06:00 Ordered HEMOGLOBIN/HEMATOCRIT,HH [HEME] DAILY Lab 07/11/17 06:00 Ordered Acetaminophen [Tylenol Extra Strength] Med 07/09/17 03:00 Active 1,000 mg PO Q6H Aspirin Med 07/09/17 09:00 Active 325 mg PO BID Docusate Sodium [Colace] Med 07/08/17 21:00 Active 100 mg PO BID Escitalopram [Lexapro] Med 07/09/17 09:00 Active 20 mg PO DAILY Hydrochlorothiazide Med 07/09/17 09:00 Active 25 mg PO DAILY Lansoprazole [Prevacid Solutab] Med 07/09/17 09:00 Active 30 mg PO DAILY Levothyroxine [Synthroid] Med 07/09/17 07:30 Active 50 mcg PO ACBRK Multivitamins w-Iron/Ca/FA/Min [Thera M Plus] Med 07/09/17 09:00 Active 1 tab PO DAILY Patient's Own Medication [Ptom] Med 07/08/17 21:00 Active 0 each JOANNE BEDTIME Potassium Chloride [Klor-Con M20] Med 07/09/17 09:00 Active 20 meq PO DAILY Rosuvastatin [Crestor] Med 07/08/17 21:00 Active 20 mg PO BEDTIME Sodium Chloride 0.9% [Saline Flush] Med 07/09/17 09:02 Active 10 ml FLUSH ASDIRECTED PRN Sodium Chloride 0.9% [Saline Flush] Med 07/09/17 09:02 Active 2.5 ml FLUSH ASDIRECTED PRN amLODIPine [Norvasc] Med 07/08/17 21:00 Active 2.5 mg PO BEDTIME oxyCODONE ER [OxyCONTIN] Med 07/08/17 21:00 Active 10 mg PO Q12HR Convert IV to Saline Lock [OM.PC] Routine Oth 07/09/17 09:02 Ordered Medication Orders Acetaminophen (Tylenol Extra Strength) 1,000 mg PO Q6H [facility] Last Admin: 07/09/17 14:34 Dose: 1,000 mg Admin: 07/09/17 08:15 Dose: 1,000 mg Admin: 07/09/17 02:26 Dose: 1,000 mg Al Hydroxide/Mg Hydroxide (Mag-Al Plus) 30 ml PO Q4H PRN PRN Reason: indigestion Albuterol (Ventolin Hfa) 0 gm INH ASDIRECTED PRN PRN Reason: Wheezing Amlodipine Besylate (Norvasc) 2.5 mg PO BEDTIME [facility] Last Admin: 07/08/17 20:55 Dose: 2.5 mg Aspirin (Aspirin) 325 mg PO BID [facility] Last Admin: 07/09/17 08:16 Dose: 325 mg Bisacodyl (Dulcolax) 10 mg RECTAL DAILY PRN PRN Reason: Constipation Diphenhydramine HCl (Benadryl) 25 - 50 mg PO Q6H PRN PRN Reason: Itching Docusate Sodium (Colace) 100 mg PO BID [facility] Last Admin: 07/09/17 08:17 Dose: 100 mg Admin: 07/08/17 20:54 Dose: 100 mg Escitalopram Oxalate (Lexapro) 20 mg PO DAILY [facility] Last Admin: 07/09/17 08:16 Dose: 20 mg Hydrochlorothiazide (Hydrochlorothiazide) 25 mg PO DAILY [facility] Last Admin: 07/09/17 08:18 Dose: 25 mg Ropivacaine 49.25 ml/Ketorolac Tromethamine 30 mg/Epinephrine HCl 0.5 mg/ Clonidine HCl 80 mcg/ Sodium Chloride 100 mls @ 50 mls/min INJECT ASDIRECTED [facility] Lactated Ringer's (Ringers, Lactated) 1,000 mls @ 100 mls/hr IV ASDIRECTED [facility] Last Admin: 07/09/17 08:26 Dose: 100 mls/hr Infusion: 07/09/17 08:26 Dose: 100 mls/hr Admin: 07/08/17 23:25 Dose: 100 mls/hr Infusion: 07/08/17 22:17 Dose: 100 mls/hr Admin: 07/08/17 12:17 Dose: 100 mls/hr Infusion: 07/08/17 12:17 Dose: 100 mls/hr Admin: 07/08/17 09:05 Dose: 100 mls/hr Lansoprazole (Prevacid Solutab) 30 mg PO DAILY [facility] Last Admin: 07/09/17 08:16 Dose: 30 mg Levothyroxine Sodium (Synthroid) 50 mcg PO ACBRK [facility] Last Admin: 07/09/17 06:30 Dose: 50 mcg Morphine Sulfate (Morphine) 1 - 3 mg IVPUSH Q3H PRN PRN Reason: Pain Last Admin: 07/09/17 12:57 Dose: 3 mg Multivitamins/Minerals (Thera M Plus) 1 tab PO DAILY [facility] Last Admin: 07/09/17 08:17 Dose: 1 tab Nystatin/Triamcinolone Acetonide (Mycolog Crm) 0 gm TOP ASDIRECTED PRN PRN Reason: dry skin Ondansetron HCl (Zofran) 4 mg IV Q6HR PRN PRN Reason: NAUSEA/VOMITING Oxycodone HCl (Oxycodone) 5 - 10 mg PO Q4H PRN PRN Reason: Pain Last Admin: 07/09/17 17:35 Dose: 10 mg Admin: 07/09/17 12:06 Dose: 10 mg Oxycodone HCl (Oxycontin) 10 mg PO Q12HR [facility] Last Admin: 07/09/17 08:17 Dose: 10 mg Admin: 07/08/17 20:55 Dose: 10 mg Fluticasone Furoate ([Veramyst] 1 [place]) 0 each JOANNE BEDTIME [facility] Last Admin: 07/08/17 22:10 Dose: Potassium Chloride (Klor-Con M20) 20 meq PO DAILY [facility] Last Admin: 07/09/17 08:15 Dose: 20 meq Rosuvastatin Calcium (Crestor) 20 mg PO BEDTIME [facility] Last Admin: 07/08/17 20:54 Dose: 20 mg Scopolamine (Transderm-Scop) 1.5 mg TRDERM ONARRIVE [facility] Last Admin: 07/08/17 09:03 Dose: 1.5 mg Sodium Chloride (Saline Flush) 10 ml FLUSH ASDIRECTED PRN PRN Reason: Keep Vein Open Sodium Chloride (Saline Flush) 2.5 ml FLUSH ASDIRECTED PRN PRN Reason: Keep Vein Open - Plan Plan (Free Text/Narrative):: 1914 Patient seen and examined. Agree with above note. Patient in bed. States she is progressing with PT. Pain controlled. Required one dose of morphine today. Otherwise no new complaints. vss, afeb Dressing dry/intact. NVI. hgb stable POD #1 1. continue PT 2. continue current pain management--encourage po medications 3. SCD's, ASA for DVT prophylaxis 4. plan for discharge home tomorrow after PT, continue with outpatient PT on discharge. Patient agrees with plan. rk
[2017-07-09] MEDS: oxyCODONE 5 MG Tab PO PRN ×2 (12:06→17:35)
[2017-07-09] MEDS: amLODIPine 2.5 MG Tab PO SCH (21:56)
[2017-07-09] MEDS: Rosuvastatin 10 MG Tab PO SCH (22:02)
[2017-07-09] MEDS: FLUTICASONE FUROATE NAS SCH (22:05)
[2017-07-10] MEDS: oxyCODONE 5 MG Tab PO PRN ×3 (01:42→15:07)
[2017-07-10] MEDS: Acetaminophen 500 MG Tab PO SCH ×3 (02:25→15:07)
[2017-07-10] MEDS: diphenhydrAMINE 25 MG Cap PO PRN ×2 (03:37→12:10)
[2017-07-10] MEDS: Levothyroxine 50 MCG Tab PO SCH (06:46)
--- NOTE | 2017-07-10 08:02 | PCM.SURGPN ---
- General Info Date of Service: 07/10/17 Date of Surgery/Procedure: 07/08/17 POD#: 2 Functional Status: Reports: Pain Controlled, Tolerating Diet, Urinating - Review of Systems General: Reports: No Symptoms Pulmonary: Reports: No Symptoms Cardiovascular: Reports: No Symptoms Gastrointestinal: Reports: No Symptoms Musculoskeletal: Reports: Leg Pain Systems Review Comment:: pt up to chair for breakfast tolerating PO intake well pain controlled with PO medications no BM yet pt would like d/c to home after PM PT - Patient Data Vitals - Most Recent: Last Vital Signs Temp 97.7 F 07/10/17 04:00 Pulse 79 07/10/17 04:00 Resp 16 07/10/17 04:00 BP 125/62 07/10/17 04:00 Pulse Ox 96 07/10/17 04:00 Weight - Most Recent: 84.822 kg I&O - Last 24 Hours: Intake & Output 07/09/17 07/10/17 07/10/17 22:59 06:59 14:59 Intake Total 1040 1000 Output Total 950 525 Balance 90 475 Lab Results Last 24 Hrs: Laboratory Results - last 24 hr 07/10/17 Range/Units 06:17 Hgb 12.7 (12.0-16.0) g/dL Hct 38.7 (36.0-46.0) % Med Orders - Current: Current Medications Acetaminophen (Tylenol Extra Strength) 1,000 mg PO Q6H [facility] Last Admin: 07/10/17 02:25 Dose: 1,000 mg Al Hydroxide/Mg Hydroxide (Mag-Al Plus) 30 ml PO Q4H PRN PRN Reason: indigestion Albuterol (Ventolin Hfa) 0 gm INH ASDIRECTED PRN PRN Reason: Wheezing Amlodipine Besylate (Norvasc) 2.5 mg PO BEDTIME [facility] Last Admin: 07/09/17 21:56 Dose: 2.5 mg Aspirin (Aspirin) 325 mg PO BID [facility] Last Admin: 07/09/17 22:01 Dose: 325 mg Bisacodyl (Dulcolax) 10 mg RECTAL DAILY PRN PRN Reason: Constipation Diphenhydramine HCl (Benadryl) 25 - 50 mg PO Q6H PRN PRN Reason: Itching Last Admin: 07/10/17 03:37 Dose: 50 mg Docusate Sodium (Colace) 100 mg PO BID [facility] Last Admin: 07/09/17 22:01 Dose: 100 mg Escitalopram Oxalate (Lexapro) 20 mg PO DAILY [facility] Last Admin: 07/09/17 08:16 Dose: 20 mg Hydrochlorothiazide (Hydrochlorothiazide) 25 mg PO DAILY [facility] Last Admin: 07/09/17 08:18 Dose: 25 mg Ropivacaine 49.25 ml/Ketorolac Tromethamine 30 mg/Epinephrine HCl 0.5 mg/ Clonidine HCl 80 mcg/ Sodium Chloride 100 mls @ 50 mls/min INJECT ASDIRECTED [facility] Lactated Ringer's (Ringers, Lactated) 1,000 mls @ 100 mls/hr IV ASDIRECTED [facility] Last Admin: 07/09/17 08:26 Dose: 100 mls/hr Lansoprazole (Prevacid Solutab) 30 mg PO DAILY [facility] Last Admin: 07/09/17 08:16 Dose: 30 mg Levothyroxine Sodium (Synthroid) 50 mcg PO ACBRK [facility] Last Admin: 07/10/17 06:46 Dose: 50 mcg Morphine Sulfate (Morphine) 1 - 3 mg IVPUSH Q3H PRN PRN Reason: Pain Last Admin: 07/09/17 12:57 Dose: 3 mg Multivitamins/Minerals (Thera M Plus) 1 tab PO DAILY [facility] Last Admin: 07/09/17 08:17 Dose: 1 tab Nystatin/Triamcinolone Acetonide (Mycolog Crm) 0 gm TOP ASDIRECTED PRN PRN Reason: dry skin Ondansetron HCl (Zofran) 4 mg IV Q6HR PRN PRN Reason: NAUSEA/VOMITING Oxycodone HCl (Oxycodone) 5 - 10 mg PO Q4H PRN PRN Reason: Pain Last Admin: 07/10/17 01:42 Dose: 10 mg Oxycodone HCl (Oxycontin) 10 mg PO Q12HR [facility] Last Admin: 07/09/17 22:01 Dose: 10 mg Fluticasone Furoate ([Veramyst] 1 Coker) 0 each JOANNE BEDTIME [facility] Last Admin: 07/09/17 22:05 Dose: Not Given Potassium Chloride (Klor-Con M20) 20 meq PO DAILY [facility] Last Admin: 07/09/17 08:15 Dose: 20 meq Rosuvastatin Calcium (Crestor) 20 mg PO BEDTIME [facility] Last Admin: 07/09/17 22:02 Dose: 20 mg Scopolamine (Transderm-Scop) 1.5 mg TRDERM ONARRIVE [facility] Last Admin: 07/08/17 09:03 Dose: 1.5 mg Sodium Chloride (Saline Flush) 10 ml FLUSH ASDIRECTED PRN PRN Reason: Keep Vein Open Sodium Chloride (Saline Flush) 2.5 ml FLUSH ASDIRECTED PRN PRN Reason: Keep Vein Open Discontinued Medications Ephedrine Sulfate (Ephedrine Sulfate) Confirm Administered Dose 50 mg .ROUTE .STK-MED ONE Stop: 07/08/17 09:07 Famotidine (Pepcid) 40 mg IVPUSH ONARRIVE [facility] Stop: 07/08/17 14:00 Last Admin: 07/08/17 09:05 Dose: 40 mg Fentanyl (Sublimaze) Confirm Administered Dose 200 mcg .ROUTE .STK-MED ONE Stop: 07/08/17 09:02 Fentanyl (Sublimaze) 50 mcg IVPUSH Q5M PRN PRN Reason: Pain (severe 7-10) Stop: 07/09/17 10:04 Hydromorphone HCl (Dilaudid) 0 mg IVPUSH ONETIME ONE Stop: 07/08/17 10:05 Last Admin: 07/08/17 21:26 Dose: Not Given Acetaminophen 1,000 mg/ Premix 100 mls @ 400 mls/hr IV ONARRIVE [facility] Stop: 07/08/17 14:00 Last Admin: 07/08/17 09:03 Dose: 400 mls/hr Cefazolin Sodium/Dextrose 2 gm (/ Premix) 50 mls @ 100 mls/hr IV ONCALL [facility] Stop: 07/08/17 14:00 Tranexamic Acid 4,000 mg/ (Sodium Chloride) 140 mls @ 600 mls/hr IV ASDIRECTED [facility] Stop: 07/08/17 14:00 Acetaminophen 1,000 mg/ Premix 100 mls @ 400 mls/hr IV Q6H [facility] Stop: 07/08/17 21:14 Last Admin: 07/08/17 20:54 Dose: 400 mls/hr Cefazolin Sodium/Dextrose 2 gm (/ Premix) 50 mls @ 100 mls/hr IV Q8H [facility] Stop: 07/09/17 02:29 Last Admin: 07/09/17 01:31 Dose: 100 mls/hr Ketorolac Tromethamine (Toradol) 15 mg IVPUSH ONARRIVE [facility] Stop: 07/08/17 14:00 Last Admin: 07/08/17 09:05 Dose: 15 mg Ketorolac Tromethamine (Toradol) 15 mg IVPUSH Q6H [facility] Stop: 07/09/17 09:00 Last Admin: 07/09/17 04:46 Dose: 15 mg Lidocaine (Xylocaine-Mpf 2%) Confirm Administered Dose 10 ml .ROUTE .STK-MED ONE Stop: 07/08/17 09:02 Midazolam HCl (Versed 1 Mg/Ml) Confirm Administered Dose 2 mg .ROUTE .STK-MED ONE Stop: 07/08/17 09:02 Ondansetron HCl (Zofran) Confirm Administered Dose 4 mg .ROUTE .STK-MED ONE Stop: 07/08/17 09:02 Oxycodone HCl (Oxycontin) 10 mg PO ONARRIVE [facility] Stop: 07/08/17 14:00 Last Admin: 07/08/17 09:04 Dose: 10 mg Propofol (Diprivan 20 Ml) Confirm Administered Dose 400 mg .ROUTE .STK-MED ONE Stop: 07/08/17 09:02 Propofol (Diprivan 20 Ml) Confirm Administered Dose 200 mg .ROUTE .STK-MED ONE Stop: 07/08/17 09:46 Tranexamic Acid (Cyklokapron) Confirm Administered Dose 4,000 mg .ROUTE .STK- MED ONE Stop: 07/08/17 07:41 - Exam Wound/Incisions: Healing Well. No: Drainage, Erythema General: Alert, Oriented Cardiovascular: Regular Rate, Regular Rhythm Extremities: Other (RLE - at/ehl/gastroc 5/5, dp 2+, sensation intact distally) Physical Findings Comment:: vss, afeb hgb 12.7 - Problem List Review Problem List Initiated/Reviewed/Updated: Yes - My Orders Last 24 Hours: Active Orders 24 hr Category Date Time Status Ready for Discharge [RC] PER UNIT ROUTINE Care 07/10/17 07:59 Ordered Urinary Catheter Removal [RC] Per Unit Routine Care 07/09/17 09:02 Active HEMOGLOBIN/HEMATOCRIT,HH [HEME] DAILY Lab 07/11/17 06:00 Ordered Aspirin Med 07/09/17 09:00 Active 325 mg PO BID Escitalopram [Lexapro] Med 07/09/17 09:00 Active 20 mg PO DAILY Hydrochlorothiazide Med 07/09/17 09:00 Active 25 mg PO DAILY Lansoprazole [Prevacid Solutab] Med 07/09/17 09:00 Active 30 mg PO DAILY Levothyroxine [Synthroid] Med 07/09/17 07:30 Active 50 mcg PO ACBRK Multivitamins w-Iron/Ca/FA/Min [Thera M Plus] Med 07/09/17 09:00 Active 1 tab PO DAILY Polyethylene Glycol 3350 [MiraLAX] Med 07/10/17 09:00 Ordered 17 gm PO DAILY Potassium Chloride [Klor-Con M20] Med 07/09/17 09:00 Active 20 meq PO DAILY Sodium Chloride 0.9% [Saline Flush] Med 07/09/17 09:02 Active 10 ml FLUSH ASDIRECTED PRN Sodium Chloride 0.9% [Saline Flush] Med 07/09/17 09:02 Active 2.5 ml FLUSH ASDIRECTED PRN Convert IV to Saline Lock [OM.PC] Routine Oth 07/09/17 09:02 Ordered Medication Orders Acetaminophen (Tylenol Extra Strength) 1,000 mg PO Q6H [facility] Last Admin: 07/10/17 02:25 Dose: 1,000 mg Admin: 07/09/17 22:02 Dose: 1,000 mg Admin: 07/09/17 14:34 Dose: 1,000 mg Admin: 07/09/17 08:15 Dose: 1,000 mg Admin: 07/09/17 02:26 Dose: 1,000 mg Al Hydroxide/Mg Hydroxide (Mag-Al Plus) 30 ml PO Q4H PRN PRN Reason: indigestion Albuterol (Ventolin Hfa) 0 gm INH ASDIRECTED PRN PRN Reason: Wheezing Amlodipine Besylate (Norvasc) 2.5 mg PO BEDTIME [facility] Last Admin: 07/09/17 21:56 Dose: 2.5 mg Admin: 07/08/17 20:55 Dose: 2.5 mg Aspirin (Aspirin) 325 mg PO BID [facility] Last Admin: 07/09/17 22:01 Dose: 325 mg Admin: 07/09/17 08:16 Dose: 325 mg Bisacodyl (Dulcolax) 10 mg RECTAL DAILY PRN PRN Reason: Constipation Diphenhydramine HCl (Benadryl) 25 - 50 mg PO Q6H PRN PRN Reason: Itching Last Admin: 07/10/17 03:37 Dose: 50 mg Docusate Sodium (Colace) 100 mg PO BID [facility] Last Admin: 07/09/17 22:01 Dose: 100 mg Admin: 07/09/17 08:17 Dose: 100 mg Admin: 07/08/17 20:54 Dose: 100 mg Escitalopram Oxalate (Lexapro) 20 mg PO DAILY [facility] Last Admin: 07/09/17 08:16 Dose: 20 mg Hydrochlorothiazide (Hydrochlorothiazide) 25 mg PO DAILY [facility] Last Admin: 07/09/17 08:18 Dose: 25 mg Ropivacaine 49.25 ml/Ketorolac Tromethamine 30 mg/Epinephrine HCl 0.5 mg/ Clonidine HCl 80 mcg/ Sodium Chloride 100 mls @ 50 mls/min INJECT ASDIRECTED [facility] Lactated Ringer's (Ringers, Lactated) 1,000 mls @ 100 mls/hr IV ASDIRECTED [facility] Last Admin: 07/09/17 08:26 Dose: 100 mls/hr Infusion: 07/09/17 08:26 Dose: 100 mls/hr Admin: 07/08/17 23:25 Dose: 100 mls/hr Infusion: 07/08/17 22:17 Dose: 100 mls/hr Admin: 07/08/17 12:17 Dose: 100 mls/hr Infusion: 07/08/17 12:17 Dose: 100 mls/hr Admin: 07/08/17 09:05 Dose: 100 mls/hr Lansoprazole (Prevacid Solutab) 30 mg PO DAILY [facility] Last Admin: 07/09/17 08:16 Dose: 30 mg Levothyroxine Sodium (Synthroid) 50 mcg PO ACBRK [facility] Last Admin: 07/10/17 06:46 Dose: 50 mcg Admin: 07/09/17 06:30 Dose: 50 mcg Morphine Sulfate (Morphine) 1 - 3 mg IVPUSH Q3H PRN PRN Reason: Pain Last Admin: 07/09/17 12:57 Dose: 3 mg Multivitamins/Minerals (Thera M Plus) 1 tab PO DAILY [facility] Last Admin: 07/09/17 08:17 Dose: 1 tab Nystatin/Triamcinolone Acetonide (Mycolog Crm) 0 gm TOP ASDIRECTED PRN PRN Reason: dry skin Ondansetron HCl (Zofran) 4 mg IV Q6HR PRN PRN Reason: NAUSEA/VOMITING Oxycodone HCl (Oxycodone) 5 - 10 mg PO Q4H PRN PRN Reason: Pain Last Admin: 07/10/17 01:42 Dose: 10 mg Admin: 07/09/17 17:35 Dose: 10 mg Admin: 07/09/17 12:06 Dose: 10 mg Oxycodone HCl (Oxycontin) 10 mg PO Q12HR [facility] Last Admin: 07/09/17 22:01 Dose: 10 mg Admin: 07/09/17 08:17 Dose: 10 mg Admin: 07/08/17 20:55 Dose: 10 mg Fluticasone Furoate ([Veramyst] 1 Coker) 0 each JOANNE BEDTIME [facility] Last Admin: 07/09/17 22:05 Dose: Admin: 07/08/17 22:10 Dose: Potassium Chloride (Klor-Con M20) 20 meq PO DAILY [facility] Last Admin: 07/09/17 08:15 Dose: 20 meq Rosuvastatin Calcium (Crestor) 20 mg PO BEDTIME [facility] Last Admin: 07/09/17 22:02 Dose: 20 mg Admin: 07/08/17 20:54 Dose: 20 mg Scopolamine (Transderm-Scop) 1.5 mg TRDERM ONARRIVE [facility] Last Admin: 07/08/17 09:03 Dose: 1.5 mg Sodium Chloride (Saline Flush) 10 ml FLUSH ASDIRECTED PRN PRN Reason: Keep Vein Open Sodium Chloride (Saline Flush) 2.5 ml FLUSH ASDIRECTED PRN PRN Reason: Keep Vein Open - Assessment Assessment (Free Text/Narrative):: POD#2 R TKA - Plan Plan (Free Text/Narrative):: dressing changed continue PT, pain management d/c to home today after PM PT miralax - advised pt to continue using daily-BID while home in addition to colace d/c summary #[id number]
[2017-07-10] MEDS ORDERED: Polyethylene Glycol 3350 Powder 17 GM Packet PO SCH (09:00)
[2017-07-10] MEDS: Lansoprazole 30 MG Orally Disintegrating Tab.CR PO SCH (09:39)
[2017-07-10] MEDS: Multivitamins with Iron/Calcium/Folic Acid/Minerals Tab PO SCH (09:39)
[2017-07-10] MEDS: oxyCODONE ER 10 MG TAB.ER PO SCH (09:39)
[2017-07-10] MEDS: Aspirin 325 MG Tab PO SCH (09:39)
[2017-07-10] MEDS: Escitalopram 10 MG Tab PO SCH (09:40)
[2017-07-10] MEDS: Potassium Chloride 20 MEQ Tab.ER PO SCH (09:40)
[2017-07-10] MEDS: Hydrochlorothiazide 25 MG Tab PO SCH (09:41)
[2017-07-10] MEDS: Docusate Sodium 100 MG Cap PO SCH (09:41)
[2017-07-10 12:41] VITALS: BP 123/74
--- NOTE | 2017-07-12 13:59 | DISCH ---
DATE OF DISCHARGE: 07/10/2017 PRIMARY CARE PHYSICIAN: Heriberto Chaves M.D. ADMITTING DIAGNOSIS: Degenerative joint disease, right knee, tricompartmental. OTHER DIAGNOSES: 1. Anxiety. 2. Gastroesophageal reflux disease. 3. Hypercholesterolemia. 4. Hypertension. 5. Hypokalemia. 6. Hypothyroidism. 7. Reactive airway disease. DISCHARGE DIAGNOSES: 1. Degenerative joint disease, right knee, tricompartmental. 2. Anxiety. 3. Gastroesophageal reflux disease. 4. Hypercholesterolemia. 5. Hypertension. 6. Hypokalemia. 7. Hypothyroidism. 8. Reactive airway disease. BRIEF HISTORY: Patti is a 66-year-old female who has had progressive complaints of left knee pain. She has tried and failed conservative treatment. She has previously undergone a right total knee arthroplasty and has done well with that. At that time, surgical treatment was recommended. On July 08, 2017, the patient underwent a right total knee arthroplasty using patient-specific instrumentation done by Dr. Aleksandra Paez. This was done under spinal anesthesia with sedation. Estimated blood loss was 50 mL. Tourniquet time was 51 minutes. Upon completion of the procedure, the patient transferred to the PACU and subsequently to Med/Surg for postoperative care. HOSPITAL COURSE: Postoperatively, the patient did well. She received 2 doses of Ancef postoperatively for a total of 24 hours of antibiotic coverage. Physical Therapy followed her through her hospital stay. Her pain was well-controlled with oral pain medications. Aspirin 325mg by mouth twice daily was started on post-operative day #1 as DVT prophylaxis. Her vital signs have been stable. She has been afebrile. Her hemoglobin on the morning of July 10 was 12.7. Her pain is currently well controlled with oral pain medications. She is ambulating well with a wheeled walker. She feels comfortable with discharge to home today. DISCHARGE MEDICATIONS: 1. OxyContin 10 mg. 2. Oxycodone 5 mg. 3. Tylenol extra strength 500 mg. 4. Colace 100 mg. 5. Aspirin 325 mg. DISCHARGE INSTRUCTIONS: 1. Follow up in clinic 10-14 days from the date of procedure. This appointment has been made for the patient. 2. Outpatient physical therapy 2-3 times per week for 4-6 weeks. 3. No driving for 4-6 weeks after right total knee arthroplasty. 4. She is to change her dressing on Friday, July 14, 2017. She should place a new dressing and leave that in place until followup. 5. Polar Care to the right knee as needed. 6. KARIME hose, on in the morning, off in the evening. For complete medication reconciliation and discharge instructions, please refer back to the patient's EHR. Should she have questions or concerns prior to followup, she has been advised to return to clinic or call. LAZARO SOLIS /[id number] PRASHANT
== END 2017-07-10 15:28 | disposition home or self-care (01) | DRG 470 ==
LOC: MW.MS 07:56
PROVIDERS: ADMIT Orthopaedic Surgery; ATTEND Orthopaedic Surgery
PROC: 0SRC0J9 Replacement of Right Knee Joint with Synthetic Substitute, Cemented, Open Approach (ICD-10-PCS; principal; 2017-07-08)
DX: M17.11 Unilateral primary osteoarthritis, right knee (principal); M94.20 Chondromalacia, unspecified site; E78.00 Pure hypercholesterolemia, unspecified; I10 Essential (primary) hypertension; F41.9 Anxiety disorder, unspecified; Z88.2 Allergy status to sulfonamides; Z79.899 Other long term (current) drug therapy
CPT/HCPCS: 01402; 36415; 51702; 73560-26-RT; 73560-RT; 85014; 85018; 86850; 86900; 86901; 88304; 88311; 97110-GP; 97116-GP; 97161-GP; A9270-GY; C1713; C1776; J0171; J0690; J0735; J1885; J2250; J2270; J2405; J2704; J2795; J3010; J7050; J7120

== ENCOUNTER 2024-09-15 06:53 | Day surgery (SDC) | payer MEDICARE, OTHER ==
[~2024-09-15 06:53] MED LIST changes: -Acetaminophen 1,000 MG in Premix Bag 1 BAG IV SCH; -Famotidine 20 MG/2 ML SDV IVPUSH SCH; -Ketorolac 15 MG/ML SDV IVPUSH SCH; -Scopolamine 1.5 MG Transdermal Patch TRDERM SCH; +Sodium Chloride 0.9% 10 ML Syringe FLUSH PRN; +Sodium Chloride 0.9% 2.5 ML Syringe FLUSH PRN; +Sodium Chloride 0.9% 20 ML SDV IV PRN; +ceFAZolin 2 GM in Sodium Chloride 0.9% 50 ML IV ONE; -oxyCODONE ER 10 MG TAB.ER PO SCH
[2024-09-15] MEDS ORDERED: fentaNYL 100 MCG/2 ML SDV ONE (07:00)
[2024-09-15] MEDS ORDERED: Midazolam 1 MG/ML 2 ML SDV ONE (07:00)
[2024-09-15] MEDS ORDERED: Propofol 200 MG/20 ML SDV ONE (07:00)
[2024-09-15] MEDS ORDERED: Lidocaine 2% 5 ML SDV ONE (07:01)
[2024-09-15] MEDS ORDERED: Lidocaine 1% 20 ML MDV ONE (07:09)
[2024-09-15] MEDS ORDERED: Bupivacaine 0.5% 30 ML SDV ONE (07:09)
[2024-09-15] MEDS: Lactated Ringers 1,000 ML IV SCH (07:34)
[2024-09-15] MEDS ORDERED: Ondansetron 4 MG/2 ML SDV IVPUSH PRN (07:56)
[2024-09-15] MEDS ORDERED: Phenylephrine HCl In 0.9% NaCl 1 MG/10 ML Syringe IVPUSH PRN (07:56)
[2024-09-15] MEDS ORDERED: fentaNYL 50 MCG/ML SDV IVPUSH PRN (07:56)
[2024-09-15] MEDS ORDERED: Morphine 2 MG/ML SYRINGE IVPUSH PRN (07:56)
[2024-09-15] MEDS ORDERED: Albuterol 0.083% 2.5 MG/3 ML Neb Soln NEB PRN (07:56)
[2024-09-15] MEDS ORDERED: HYDROmorphone 1 MG/ML Syringe IVPUSH PRN (07:56)
[2024-09-15] MEDS ORDERED: Metoclopramide 10 MG/2 ML SDV IVPUSH PRN (07:56)
[2024-09-15] MEDS ORDERED: Naloxone 0.4 MG/ML SDV IVPUSH PRN (07:56)
[2024-09-15] MEDS ORDERED: Ondansetron 4 MG/2 ML SDV ONE (08:07)
[2024-09-15] MEDS ORDERED: ceFAZolin 2 GM Vial ONE (08:10)
[2024-09-15] MEDS ORDERED: Phenylephrine HCl In 0.9% NaCl 1 MG/10 ML Syringe ONE (08:29)
[2024-09-15 11:06] VITALS: BP 124/56; PULSE 76
== END 2024-09-15 10:00 | disposition home or self-care (01) ==
LOC: MW.SDS 06:53
PROVIDERS: ATTEND Surgery
DX: I78.1 Nevus, non-neoplastic (principal); L72.3 Sebaceous cyst; L08.9 Local infection of the skin and subcutaneous tissue, unspecified; J45.909 Unspecified asthma, uncomplicated; I10 Essential (primary) hypertension; E78.00 Pure hypercholesterolemia, unspecified; G47.33 Obstructive sleep apnea (adult) (pediatric); K21.9 Gastro-esophageal reflux disease without esophagitis; F41.9 Anxiety disorder, unspecified; Z87.891 Personal history of nicotine dependence; Z79.82 Long term (current) use of aspirin; Z79.899 Other long term (current) drug therapy; Z88.2 Allergy status to sulfonamides
CPT/HCPCS: 11104; 11422; J0665; J0690; J2250; J2371; J2405; J2704; J3010; J7120; 00300; 99100; J3490